=== PATIENT | male | born 1950 | race Caucasian/White ===

== ENCOUNTER 2023-03-19 08:03 | Day surgery (SDC) | payer MEDICARE, BC ==
[~2023-03-19 08:03] MED LIST: Lactated Ringers 1,000 ML IV SCH; ceFAZolin 2 GM in Sodium Chloride 0.9% 50 ML IV ONE
[2023-03-19] MEDS ORDERED: Albuterol 0.083% 2.5 MG/3 ML Neb Soln NEB PRN (08:54)
[2023-03-19] MEDS ORDERED: droPERidol 5 MG/2 ML SDV IVPUSH PRN (08:54)
[2023-03-19] MEDS ORDERED: Naloxone 0.4 MG/ML SDV IVPUSH PRN (08:54)
[2023-03-19] MEDS ORDERED: Ondansetron 4 MG/2 ML SDV IVPUSH PRN (08:54)
[2023-03-19] MEDS ORDERED: Morphine 2 MG/ML SYRINGE IVPUSH PRN (08:54)
[2023-03-19] MEDS ORDERED: fentaNYL 50 MCG/ML SDV IVPUSH PRN (08:54)
[2023-03-19] MEDS ORDERED: HYDROmorphone 1 MG/ML Syringe IVPUSH PRN (08:54)
[2023-03-19] MEDS ORDERED: Metoclopramide 10 MG/2 ML SDV IVPUSH PRN (08:54)
[2023-03-19] MEDS ORDERED: Propofol 200 MG/20 ML SDV ONE (08:55)
[2023-03-19] MEDS ORDERED: fentaNYL 250 MCG/5 ML SDV ONE (08:55)
[2023-03-19] MEDS ORDERED: Bupivacaine 0.5%/EPINEPHrine 1:200,000 30 ML SDV ONE (09:46)
[2023-03-19] MEDS ORDERED: Water For Injection, Sterile 20 ML ONE (10:07)
[2023-03-19] MEDS ORDERED: ceFAZolin 2 GM Vial ONE ×2 (10:07→11:36)
[2023-03-19] MEDS ORDERED: Ondansetron 4 MG/2 ML SDV ONE (10:09)
[2023-03-19] MEDS ORDERED: Dexamethasone 4 MG/ML 5 ML MDV ONE (10:09)
[2023-03-19] MEDS ORDERED: Phenylephrine HCl 0.5 MG/5 ML AMP ONE (11:35)
[2023-03-19] MEDS ORDERED: ePHEDrine 50 MG/ML SDV ONE (11:35)
== END 2023-03-19 12:00 | disposition home or self-care (01) ==
LOC: MW.SDS 08:03
PROVIDERS: ATTEND Orthopaedic Surgery
DX: S83.242A Other tear of medial meniscus, current injury, left knee, initial encounter (principal); I10 Essential (primary) hypertension; E78.00 Pure hypercholesterolemia, unspecified; E66.9 Obesity, unspecified; Z87.891 Personal history of nicotine dependence; Z79.82 Long term (current) use of aspirin; Z79.899 Other long term (current) drug therapy; W01.0XXA Fall on same level from slipping, tripping and stumbling without subsequent striking against object, initial encounter
CPT/HCPCS: 29881; J0690; J1100; J2371; J2405; J2704; J3010; J7120; J3490

== ENCOUNTER 2023-04-11 06:14 | Day surgery (SDC) | payer MEDICARE, BC ==
[~2023-04-11 06:14] MED LIST changes: +Albuterol 0.083% 2.5 MG/3 ML Neb Soln NEB PRN; +HYDROmorphone 1 MG/ML Syringe IVPUSH PRN; -Lactated Ringers 1,000 ML IV SCH; +Metoclopramide 10 MG/2 ML SDV IVPUSH PRN; +Morphine 2 MG/ML SYRINGE IVPUSH PRN; +Naloxone 0.4 MG/ML SDV IVPUSH PRN; +Ondansetron 4 MG/2 ML SDV IVPUSH PRN; -ceFAZolin 2 GM in Sodium Chloride 0.9% 50 ML IV ONE; +droPERidol 5 MG/2 ML SDV IVPUSH PRN; +fentaNYL 50 MCG/ML SDV IVPUSH PRN
[2023-04-11] MEDS ORDERED: Ropivacaine 0.5% 5 MG/ML 30 ML SDV ONE (06:30)
[2023-04-11] MEDS ORDERED: Lidocaine 2% 5 ML SDV ONE ×2 (06:30→06:53)
[2023-04-11] MEDS: Lactated Ringers 1,000 ML IV SCH (06:38)
[2023-04-11] MEDS ORDERED: Bupivacaine 0.25% 30 ML SDV ONE ×2 (06:49→06:53)
[2023-04-11] MEDS ORDERED: propofoL 100 ML ONE (06:51)
[2023-04-11] MEDS ORDERED: ceFAZolin 2 GM in Sodium Chloride 0.9% 50 ML IV ONE (07:00)
== END 2023-04-11 08:25 | disposition home or self-care (01) ==
LOC: MW.SDS 06:14
PROVIDERS: ATTEND Orthopaedic Surgery
DX: G56.01 Carpal tunnel syndrome, right upper limb (principal); I10 Essential (primary) hypertension; E78.00 Pure hypercholesterolemia, unspecified; Z79.82 Long term (current) use of aspirin; Z79.899 Other long term (current) drug therapy; Z87.891 Personal history of nicotine dependence
CPT/HCPCS: 64721; J0665; J2704; J2795; J7120; 01810; 99100; J3490

== ENCOUNTER 2023-05-28 08:58 | Day surgery (SDC) | payer MEDICARE, BC ==
[~2023-05-28 08:58] MED LIST changes: -Albuterol 0.083% 2.5 MG/3 ML Neb Soln NEB PRN; -HYDROmorphone 1 MG/ML Syringe IVPUSH PRN; -Metoclopramide 10 MG/2 ML SDV IVPUSH PRN; -Morphine 2 MG/ML SYRINGE IVPUSH PRN; -Naloxone 0.4 MG/ML SDV IVPUSH PRN; -Ondansetron 4 MG/2 ML SDV IVPUSH PRN; +ceFAZolin 2 GM in Sodium Chloride 0.9% 50 ML IV ONE; -droPERidol 5 MG/2 ML SDV IVPUSH PRN; -fentaNYL 50 MCG/ML SDV IVPUSH PRN
[2023-05-28] MEDS: Lactated Ringers 1,000 ML IV SCH (09:54)
[2023-05-28] MEDS ORDERED: Naloxone 0.4 MG/ML SDV IVPUSH PRN (10:00)
[2023-05-28] MEDS ORDERED: Morphine 2 MG/ML SYRINGE IVPUSH PRN (10:00)
[2023-05-28] MEDS ORDERED: HYDROmorphone 1 MG/ML Syringe IVPUSH PRN (10:00)
[2023-05-28] MEDS ORDERED: Ondansetron 4 MG/2 ML SDV IVPUSH PRN (10:00)
[2023-05-28] MEDS ORDERED: Metoclopramide 10 MG/2 ML SDV IVPUSH PRN (10:00)
[2023-05-28] MEDS ORDERED: Albuterol 0.083% 2.5 MG/3 ML Neb Soln NEB PRN (10:00)
[2023-05-28] MEDS ORDERED: fentaNYL 50 MCG/ML SDV IVPUSH PRN (10:00)
[2023-05-28] MEDS ORDERED: droPERidol 5 MG/2 ML SDV IVPUSH PRN (10:00)
[2023-05-28] MEDS ORDERED: fentaNYL 100 MCG/2 ML SDV ONE (10:27)
[2023-05-28] MEDS ORDERED: Propofol 200 MG/20 ML SDV ONE (10:27)
[2023-05-28] MEDS ORDERED: dexmedeTOMIDine HCl 200 MCG/2 ML SDV ONE (10:31)
[2023-05-28] MEDS ORDERED: Bupivacaine 0.25% 30 ML SDV ONE (10:47)
[2023-05-28] MEDS ORDERED: methylPREDNISolone Sodium Succinate 40 MG/1 ML SDV ONE (11:08)
[2023-05-28] MEDS ORDERED: ceFAZolin 2 GM Vial ONE (11:26)
[2023-05-28] MEDS ORDERED: ePHEDrine 50 MG/ML SDV ONE (11:40)
== END 2023-05-28 13:05 | disposition home or self-care (01) ==
LOC: MW.SDS 08:58
PROVIDERS: ATTEND Orthopaedic Surgery
DX: G56.02 Carpal tunnel syndrome, left upper limb (principal); M65.331 Trigger finger, right middle finger; I10 Essential (primary) hypertension; E78.00 Pure hypercholesterolemia, unspecified; Z87.891 Personal history of nicotine dependence; Z79.82 Long term (current) use of aspirin; Z79.899 Other long term (current) drug therapy
CPT/HCPCS: 26055; 64721; 82947; J0665; J0690; J2704; J2920; J3010; J7120; 01810; 99100; J3490

== ENCOUNTER 2023-07-02 07:20 | Day surgery (SDC) | payer MEDICARE, BC ==
[2023-07-02] MEDS: Lactated Ringers 1,000 ML IV SCH (07:36)
[2023-07-02] MEDS ORDERED: HYDROmorphone 1 MG/ML Syringe IVPUSH PRN (07:39)
[2023-07-02] MEDS ORDERED: Morphine 2 MG/ML SYRINGE IVPUSH PRN (07:39)
[2023-07-02] MEDS ORDERED: fentaNYL 50 MCG/ML SDV IVPUSH PRN (07:39)
[2023-07-02] MEDS ORDERED: Albuterol 0.083% 2.5 MG/3 ML Neb Soln NEB PRN (07:39)
[2023-07-02] MEDS ORDERED: droPERidol 5 MG/2 ML SDV IVPUSH PRN (07:39)
[2023-07-02] MEDS ORDERED: Ondansetron 4 MG/2 ML SDV IVPUSH PRN (07:39)
[2023-07-02] MEDS ORDERED: Naloxone 0.4 MG/ML SDV IVPUSH PRN (07:39)
[2023-07-02] MEDS ORDERED: Metoclopramide 10 MG/2 ML SDV IVPUSH PRN (07:39)
[2023-07-02] MEDS ORDERED: Propofol 200 MG/20 ML SDV ONE (07:54)
[2023-07-02] MEDS ORDERED: ceFAZolin 2 GM in Sodium Chloride 0.9% 50 ML IV ONE (08:00)
[2023-07-02] MEDS ORDERED: Bupivacaine 0.25% 30 ML SDV ONE (08:17)
[2023-07-02] MEDS ORDERED: Water For Injection, Sterile 20 ML ONE (08:25)
[2023-07-02] MEDS ORDERED: dexmedeTOMIDine HCl 200 MCG/2 ML SDV ONE (08:25)
[2023-07-02] MEDS ORDERED: Ketamine HCL/NACL, ISO-OSM 50 MG/5 ML Syringe ONE (08:26)
== END 2023-07-02 10:05 | disposition home or self-care (01) ==
LOC: MW.SDS 07:20
PROVIDERS: ATTEND Orthopaedic Surgery
DX: M65.331 Trigger finger, right middle finger (principal); I10 Essential (primary) hypertension; E78.00 Pure hypercholesterolemia, unspecified; Z87.891 Personal history of nicotine dependence; Z79.82 Long term (current) use of aspirin; Z79.899 Other long term (current) drug therapy
CPT/HCPCS: 26055; J0131; J0665; J0690; J2704; J3490; J7120